=== PATIENT | female | born 2005 | race Caucasian/White ===

== ENCOUNTER 2024-04-19 19:07 | Emergency (ER) | payer BC, SELFPAY ==
--- NOTE | ~2024-04-19 | CT_ITS ---
EXAMINATION: CT HEAD WITHOUT CONTRAST CLINICAL INFORMATION: Left hemianopia. Migraine. COMPARISON: None available. TECHNIQUE: Contiguous axial imaging was performed from the skull base to vertex without intravenous administration of contrast. This CT examination was performed using dose optimization techniques as appropriate, variously including the following: *Automated exposure control *Adjustment of mA and/or kV according to patient size (this includes techniques or standardized protocols for targeted exams where dose is matched to indication/reason for exam; i.e. extremities or head) *Use of iterative reconstruction technique DLP: 695 mGy-cm FINDINGS: There is no acute intracranial hemorrhage. There is no evidence of acute/subacute cerebral or cerebellar infarction. There is no mass effect or midline shift. There is no extra-axial fluid collection. The ventricles are normal in size. The orbits are symmetric and within normal limits. The calvarium is intact. The mastoid air cells are well aerated. There is mucosal thickening within both maxillary sinuses, left greater than right. There is a moderate degree of mucosal disease throughout the ethmoid air cells bilaterally. There is mucosal disease within the sphenoid sinus. CT/CT head/brain wo IV con IMPRESSION: No acute intracranial abnormality. Moderate paranasal sinus mucosal disease.
[2024-04-19 19:32] VITALS: BP 113/62; PULSE 78; RESP 18; TEMP 36.6; O2SAT 98; BMI 27.9
--- NOTE | 2024-04-19 19:35 | ED.GENADULT ---
HPI - General Adult General Chief complaint: Neuro Symptoms/Deficit Stated complaint: L side vision changes, L side tingling and numbnes Time Seen by Provider: 04/19/24 21:41 Source: patient Mode of arrival: ambulatory Limitations: no limitations History of Present Illness ED Provider: yenifer ALVARADO narrative: Patient history of migraine headache today at around 17:30 all of a sudden noticed mild headache with left lateral scotoma unable to see in the left side with slight numbness of the left side of the face lasted for about an hour no other deficits after arrival in the ER patient does not have any vision changes has still mild headache patient never had similar complaints in the past Related Data Previous Rx's ?Medication ?Instructions ?Recorded aiqrwlwnww-pzvysdfoctfef-orwmjfcv 1 tab PO Q6H PRN haeadace #20 tabs 04/19/24 50 mg-325 mg-40 mg tablet sumatriptan succinate 50 mg tablet 50 mg PO Q2H PRN migraine headache 04/19/24 (Imitrex) #10 tabs Allergies Allergy/AdvReac Type Severity Reaction Status Date / Time Penicillins [PCN] Allergy Hives Verified 04/19/24 19:42 Review of Systems Review of Systems: Yes all other systems are reviewed and are negative PMFSH Social History Social History Advance Directives: No Advance Directives Information Provided: No Do you have a plan to hurt others: No Plan Physical Exam ED Vital Signs: Vital Signs - 24 hr 04/19/24 19:32 04/19/24 22:00 04/19/24 23:36 Temperature 97.9 F 98.5 F 98.5 F Pulse Rate 78 79 79 Respiratory Rate 18 18 Blood Pressure 113/62 113/70 113/70 Pulse Oximetry 98 98 98 Oxygen Delivery Method Room Air Room Air BMI result Body Mass Index 27.9 Appearance: Alert. Oriented X3. No acute distress. Eyes: PERRLA, No Nystagmus EOMI visual jefferson intact fundus benign ENT: Pharynx normal. Oral Mucosa moist Neck: Normal inspection. Neck supple. CVS: Normal heart rate and rhythm. Pulses normal. Respiratory: No respiratory distress. Equal air entry bilateral, no wheezing/rales/rhonchi Abdomen: Soft and nontender. Bowel sounds are present, no mass palpable, no CVA tenderness Skin: Skin warm and dry. Normal skin color. Normal skin turgor. Extremities: No lower extremity edema. No calf tenderness Neuro: Oriented X 3. No motor deficit. No sensory deficit.No cerebellar signs , cranial nerves II-XII intact NIH Stroke Scale Internal: Initial- Upon Arrival Time: 19:48 Level of Consciousness: Alert Level of Consciousness Questions: Answers both questions correctly Level of Consciousness Commands: Performs both tasks correctly Best Gaze: Normal Visual: No visual loss Facial Palsy: Normal Motor Arm (Right): No drift Motor Arm (Left): No drift Motor Leg (Right): No drift Motor Leg (Left): No drift Limb Ataxia: Absent Sensory: Normal Best Language: No aphasia Dysarthia: Normal Extinction and Inattention: No abnormality Score: 0 Course Course Course Narrative: This is a rapid medical exam performed by Huey Godinez NP: Additional HPI, ROS, PE not included below will be deferred to primary provider. Patient is a 18-year-old female with history of migraines presenting to the ED with complaint of intermittent decreased vision to lateral field of vision in left eye as well as headache, left sided facial tingling and left arm numbness and tingling. Describes visual changes as a loss, not black. States her visual symptoms and numbness/tingling are not always associated with a headache. Has seen a neurologist once and had an MRI but is not currently prescribed any migraine medications. NIHSS 0. States she fell down a few stairs the other day due to vision impairment, denies head strike or LOC. Denies any known tick bites or rashes. Plan: labs Medications Administered Discontinued Medications Generic Name Dose Route Start Last Admin Trade Name Mehul PRN Reason Stop Dose Admin Acetaminophen/Butalbital/Caffeine 1 tab 04/19/24 22:46 04/19/24 22:52 Butalb/Acetamin/Caff 50/325/40 Tablet PO 04/19/24 22:47 1 tab ONCE ONE Administration Medical Decision Making Medical Decision Making [facility] Narrative: Patient's symptoms likely from ocular migraine no motor deficit at this time unlikely TIA or CVA Differential Diagnosis Differential Diagnoses: The differential diagnosis associated with the presentation includes Ocular migraine/TIA/CVA Lab Data [facility] Lab Attestation statement: I reviewed the patient's lab results. 04/19/24 19:52 07/24/24 19:52 Labs: Lab Results 04/19/24 04/19/24 Range/Units 19:52 22:57 WBC 8.4 (4.8-10.8) X10*3/uL RBC 5.03 (4.20-5.50) X10*6/uL Hgb 11.6 L (12.0-16.0) g/dl Hct 37.2 (37.0-47.0) % MCV 74.0 L (80.0-98.0) fL MCH 23.1 L (27.0-33.0) pg MCHC 31.2 (31.0-35.0) g/dl RDW 15.9 (11.0-16.0) % Plt Count 342 (160-400) X10*3/uL MPV 9.8 (9.4-12.3) fL Immature Gran % (Auto) 0.2 (0.0-0.4) % Neut % (Auto) 52.5 (45-73) % Lymph % (Auto) 33.8 (20-40) % [place] % (Auto) 8.2 (2-11) % Eos % (Auto) 4.9 H (0-4) % Baso % (Auto) 0.4 (0-2) % Lymph # (Auto) 2.8 (1.2-4.9) X10*3/uL [place] # (Auto) 0.7 (0.1-1.2) X10*3/uL Eos # (Auto) 0.4 (0.0-0.4) X10*3/uL Baso # (Auto) 0.0 (0.0-0.2) X10*3/uL Abs Immat Gran (auto) 0.02 (0.00-0.03) X10*3/uL Absolute Neuts (auto) 4.4 (2.0-8.3) x10*3/uL Absolute Nucleated RBC 0.000 (0.0-0.012) X10*3/uL Nucleated RBC % (auto) 0.0 (0.0-0.2) /100WBC Sodium 140 (135-145) mmol/L Potassium 4.0 (3.3-5.1) mmol/L Chloride 104 (96-108) mmol/L Carbon Dioxide 25 (22-29) mmol/L Anion Gap 15 (12-20) BUN 14 (9-16) mg/dL Creatinine 1.01 (0.5-1.4) mg/dL Estim Creat Clear Calc 110.4 Estimated GFR > 60 Random Glucose 89 (60-115) mg/dL Calcium 9.9 (8.4-10.2) mg/dL Magnesium 2.4 (1.6-2.6) mg/dL Total Bilirubin 0.9 (0.0-1.0) mg/dL AST 21 (5-31) U/L ALT 46 H (0-31) U/L Alkaline Phosphatase 64 (39-117) U/L Total Protein 7.7 (6.5-8.0) g/dL Albumin 4.2 (3.5-5.0) g/dL TSH 1.68 (0.32-4.0) uIU/mL Beta HCG, Quant < 2 mIU/mL Urine Color [place] A Urine Appearance Clear Urine pH 8.0 (5.0-9.0) Ur Specific [place] <= 1.005 (1.005-1.025) Urine Protein Negative (Neg-Trace) mg/dL Urine Glucose (UA) Negative (Negative) mg/dL Urine Ketones Negative (Negative) mg/dL Urine Blood Large (3+) H (Negative) Urine Nitrite Negative (Negative) Ur Leukocyte Esterase Trace H (Negative) Urine RBC >20 H (0-2) /HPF Urine WBC 0-5 (0-5) /HPF Ur Squamous Epith Cells 0-2 (0-2) /HPF Urine Bacteria None Seen (None Seen) Hyaline Casts 0-2 (0-2) /LPF Discharge Plan Discharge Clinical Impression: Ocular migraine Patient Disposition: Home, Self-Care Instructions: Ocular Migraine (ED) Additional Instructions: Your symptoms likely from ocular migraine Take Imitrex and Fioricet as prescribed Follow up with your PCP Prescriptions: New sumatriptan succinate [Imitrex] 50 mg tablet 50 mg PO Q2H PRN (Reason: migraine headache) Qty: 10 0RF Rx Instructions: do not exceed 2 doses per 24 hrs zfobzuorhb-wniayikvodhsg-bnow 50-325-40 mg tablet 1 tab PO Q6H PRN (Reason: haeadace) Qty: 20 0RF Interventions: ED Discharge Assessment Last Done: 04/19/24 23:36 Discharge Date/Time: 04/19/24 23:37 Print Language: Citizen Of [place]
[2024-04-19 19:55] LABS: MANUAL DIFF FLAG NO
--- OUTSIDE RECORDS SUMMARY | 2024-04-19 19:58 | XMS_ITS | Continuity of Care Document ---
Author Organization [facility] Address [address] [place] [address]- Care Team Providers Care Hairspring Setter Name Role Phone Any KIRK, Nicolas Bailey Primary Care Physician Encounter PSS Date(s): 03/31/23 - 04/07/23 [facility] [place] [address] [place] [address]- Attending Physician: Maya SALES ENABLEMENT MANAGER, Rafia Veliz Allergies, Adverse Reactions, Alerts Substance Reaction Severity Status amoxicillin hives Active Immunizations Given and Recorded Vaccine Date Status Refusal Reason Meningococcal Conjugate Vaccine 03/27/22 Given Meningococcal Conjugate Vaccine 1 06/26/15 Given SARS-CoV-2 (COVID-19) mRNA BNT-162b2 vac 03/13/21 Recorded SARS-CoV-2 (COVID-19) mRNA BNT-162b2 vac 02/13/21 Recorded influenza virus vaccine, inactivated 10/01/20 Give n influenza virus vaccine, inactivated 2 10/06/14 Gi rona influenza virus vaccine, inactivated 09/15/04 Give n influenza virus vaccine, inactivated 08/07/04 Give n Hepatitis A Pediatric Vaccine 01/24/20 Given tetanus/diphtheria/pertussis, acel(Tdap) 3 06/26/15 Given Poliovirus Vaccine, Inactivated 01/30/09 Given Poliovirus Vaccine, Inactivated 06/17/05 Given Poliovirus Vaccine, Inactivated 04/01/04 Given Poliovirus Vaccine, Inactivated 02/05/04 Given Diphtheria/Tet/Pertussis, Acel (oldterm) 01/30/09 Given Measles/Mumps/Rubella Virus Vaccine 01/20/08 Given Measles/Mumps/Rubella Virus Vaccine 03/11/05 Given Varicella Virus Vaccine 01/20/08 Given Varicella Virus Vaccine 12/08/04 Given Influenza Virus Vaccine (oldterm) 09/08/06 Given Diphth/Pertussis,Acel/Tetanus (oldterm) 06/17/05 G iven Diphth/Pertussis,Acel/Tetanus (oldterm) 06/03/04 G iven Diphth/Pertussis,Acel/Tetanus (oldterm) 04/01/04 G iven Diphth/Pertussis,Acel/Tetanus (oldterm) 02/05/04 G iven Haemophilus B Conj Vaccine (oldterm) 03/11/05 Give n Haemophilus B Conj Vaccine (oldterm) 06/03/04 Give n Haemophilus B Conj Vaccine (oldterm) 04/01/04 Give n Haemophilus B Conj Vaccine (oldterm) 02/05/04 Give n Prevnar Inj (oldterm) 12/08/04 Given Prevnar Inj (oldterm) 06/03/04 Given Prevnar Inj (oldterm) 04/01/04 Given Prevnar Inj (oldterm) 02/05/04 Given Hepatitis B Vaccine (old term) 09/01/04 Given Hepatitis B Vaccine (old term) 01/07/04 Given Hepatitis B Vaccine (old term) 03 Given 1Result Comment: [06/26/2015] Dr. Diaz 2Result Comment: [10/06/2014] Cydney Diaz MD 3Result Comment: [06/26/2015] Dr. Diaz Medications Claritin 10 mg oral tablet 1 tablet = 10 mg, By Mouth, Daily, # 30 tablet, 0 Refills, Maintenance, 06/26/15 15:17:08, Tablet Start Date: 06/26/15 Status: Ordered Flonase 50 mcg/inh nasal spray 1 sprays, Nares, Both, Daily, 0 Refills, Maintenance, 06/26/15 15:17:20 Start Date: 06/26/15 Status: Ordered Lidoderm 5% film 1 patch, Topically, Daily, # 21 patch, 0 Refills, Maintenance, 06/28/21 3:10:00 EDT, [facility]/pharmacy #[id number], Partial fill upon patient request if the prescription is for a schedule II opioid drug., 1 patch Topically Daily,x21 days, 181, cm, 06/28/21 0:46:... Start Date: 06/28/21 Stop Date: 07/19/21 Status: Ordered magnesium gluconate 500 mg oral tablet 1 tablet = 500 mg, By Mouth, Daily, # 100 tablet, 3 Refills, Maintenance, 07/25/18 15:18:21 EDT Start Date: 07/25/18 Status: Ordered riboflavin 400 mg oral capsule 1 capsule = 400 mg, By Mouth, Daily, # 100 capsule, 3 Refills, Maintenance, 07/25/18 15:18:33 EDT, Capsule Start Date: 07/25/18 Status: Ordered Zofran ODT 4 mg oral tablet, disintegrating 1 tablet = 4 mg, By Mouth, 3 times a day, # 15 tablet, 0 Refills, Maintenance, 07/07/18 18:37:00 EDT Start Date: 07/07/18 Stop Date: 07/12/18 Status: Ordered Problem List Condition Confirmation Course Effective Dates Status Health St atus Informant Allergic rhinitis Confirmed Active Lactose intolerance Confirmed Active Vital Signs Most recent to oldest [Reference Range]: 1 Height 178 cm (03/31/23 10:11 AM) Weight 103.3 kg (03/31/23 10:11 AM) Pulse Rate [55-90 bpm] 86 bpm (03/31/23 10:11 AM) Body Mass Index [18.5-24.99 kg/m2] 32.6 kg/m2 *>HHI* (03/31/23 10:11 AM) Blood Pressure [90-138/55-84 mm Hg] 124/ 80mm Hg (03/31/23 10:11 AM) Temperature [96.8-100.4 DegF] 99.1 DegF (02/15/23 1:22 PM) Blood pressure sites Arm, left (03/31/23 10:11 AM) Temperature Route Tympanic (02/15/23 1:22 PM) Dry Weight 103.3 kg (03/31/23 10:11 AM) Weight Obtained Via Standing scale (03/31/23 10:11 AM) Dry Weight Obtained Via Standing scale (03/31/23 10:11 AM) Height Percentile 98.87 % 1 (03/31/23 10:11 AM) Height ZScore 2.28 2 (03/31/23 10:11 AM) Weight Percentile Per Age 98.90 % 3 (03/31/23 10:11 AM) BMI Percentile 96.04 4 (03/31/23 10:11 AM) BMI ZScore 1.76 5 (03/31/23 10:11 AM) Weight ZScore 2.29 6 (03/31/23 10:11 AM) 1Result Comment: ^~:!Percentile Source -CDC/WHO 2Result Comment: ^~:!ZScore Source -CDC/WHO 3Result Comment: ^~:!Percentile Source -CDC/WHO 4Result Comment: ^~:!Percentile Source -CDC/WHO 5Result Comment: ^~:!ZScore Source -CDC/WHO 6Result Comment: ^~:!ZScore Source -CDC/WHO Social History Social History Type Response Smoking Status Never smoker; Tobacc o user in household: No entered on: 07/07/18 Sex Patient Care team information Care Team Personnel Name: Rafia Trejo NP Position: [facility] Associate Professional Member Role: Lifetime Consulting Provider Address: Address: [address] [place] [address] [facility] [address] Name: Chriss Garcia MD Position: [facility] Physician - Pediatrics Member Role: Lifetime Consulting Physician Address: Address: [address] [place] [address] [address] Name: Nicolas Agarwal MD Position: [facility] Physician - Pediatrics Member Role: PCP Address: Address: [address] [place] [address] [facility] [address] Name: Rubio Agarwal NP Position: [facility] Associate Professional Member Role: Lifetime Consulting Provider Address: Address: [address] [place] [address] [facility] [place] [address] Name: Nadia Alford Position: [facility] Associate Professional Member Role: Lifetime Consulting Provider Address: Address: [address] [place] [address] [facility] [address] Care Team Related Persons Name: FEDERICO OBRIEN Address: home [address] [place] [address] Name: ROBIN OBRIEN Address: home [address] [place] [address]
--- OUTSIDE RECORDS SUMMARY | 2024-04-19 19:58 | XMS_ITS | Continuity of Care Document ---
Author Organization [facility] Address [address] [place] [address]- Care Team Providers Care Oven Operator Automatic Name Role Phone Any KIRK, Nicolas Bailey Primary Care Physician Encounter PSS Date(s): 10/03/21 - 03/14/22 [facility] [place] [address] [place] [address]- Attending Physician: Rubio Agarwal NP [place] Allergies, Adverse Reactions, Alerts Substance Reaction Severity Status amoxicillin hives Active Immunizations Given and Recorded Vaccine Date Status Refusal Reason influenza virus vaccine, inactivated 10/01/20 Give n influenza virus vaccine, inactivated 1 10/06/14 Gi rona influenza virus vaccine, inactivated 09/15/04 Give n influenza virus vaccine, inactivated 08/07/04 Give n Hepatitis A Pediatric Vaccine 01/24/20 Given Meningococcal Conjugate Vaccine 2 06/26/15 Given tetanus/diphtheria/pertussis, acel(Tdap) 3 06/26/15 Given Poliovirus [...] Vaccine (old term) 03 Given 1Result Comment: [10/06/2014] Cydney Diaz MD 2Result Comment: [06/26/2015] Dr. Diaz 3Result Comment: [06/26/2015] Dr. Diaz Medications Claritin [...] patch, 0 Refills, Maintenance, 06/28/21 3:10:00 EDT, [facility]/pharmacy #[id number], Partial fill upon patient request if [...] Date: 07/12/18 Status: Ordered Problem List Condition Effective Dates Status Health Status Inform ant Allergic rhinitis(Confirmed) Active Lactose intolerance(Confirmed) Active Social History Social History Type Response Smoking Status Never smoker; Tobacc o user in household: No entered on: 07/07/18 Sex
--- OUTSIDE RECORDS SUMMARY | 2024-04-19 19:58 | XMS_ITS | Continuity of Care Document ---
Author Organization [facility] Address [address] [place] [address]- Care Team Providers Care Hand Meat Salter Name Role Phone Any KIRK, Nicolas Bailey Primary Care Physician Encounter [facility] Date(s): 06/27/21 - 06/28/[address] [address]- Encounter Diagnosis Acute lumbar back pain(Final) - 06/28/21 Injury of spinal nerve root at L5 level(Final) - 06/28/21 Discharge Disposition: A-D/C Home Attending Physician: Carline Gonzalez DO Admitting Physician: Carline Gonzalez DO Referring Physician: Not on Staff, Referring MD Allergies, Adverse Reactions, Alerts Substance Reaction Severity [...] patch, 0 Refills, Maintenance, 06/28/21 3:10:00 EDT, [facility]/pharmacy #[id number], Partial fill upon patient request [...] ant Allergic rhinitis(Confirmed) Active Lactose intolerance(Confirmed) Active Results Radiology Reports * Exam Date Time Procedure Performing Provider Status 06/27/21 10:24 PM Lumbar Spine 2 or 3 Views Driss Campuzano; Auth (Verified) Notes: (Lumbar Spine 2 or 3 Views) Reason For Exam: Pain RESULT: Lumbar Spine 2 or 3 Views Lumbar Spine 2 or 3 Views Hx of Present Illness: severe lower back pain, has hx of stress fxs in back.; Reason: Pain; Clinical Question(s): Fracture Dislocation COMPARISON: None. FINDINGS: Mild curvature to the right. No bone lesions or fractures. Normal disc configuration. Normal alignment. No spondylolysis or spondylolisthesis. Normal soft tissues. IMPRESSION: No acute osseous injury identified. WSN: [id number] Ordering Physician: Joelle Lepe Dictated By: Estevan Cruz MD Dictated Date/Time: 06/27/21 10:34 p Reviewed By: Estevan Cruz MD Signed By: Estevan Cruz MD Signed Date/Time: 06/27/21 10:34 pm Transcribed By: THAI Transcribed Date/Time: 06/27/21 10:26 pm Vital Signs Most recent to oldest [Reference Range]: 1 2 Height 181 cm (06/28/21 12:46 AM) 181 cm (06/27/21 6:12 PM) Weight 93.4 kg (06/28/21 12:46 AM) 93.4 kg (06/27/21 6:12 PM) Oxygen Saturation [94-100 %] 97 % (06/28/21 12:46 AM) 100 % (06/27/21 6:12 PM) Pulse Rate [55-90 bpm] 68 bpm (06/28/21 12:46 AM) 93 bpm *H* (06/27/21 6:12 PM) Body Mass Index [18.5-24.99] 28.51 *H* (06/28/21 12:46 AM) 28.51 *H* (06/27/21 6:12 PM) Blood Pressure [80-130/50-80 mm Hg] 109/ 59mm Hg (06/28/21 12:46 AM) 114/61mm Hg (06/27/21 6:12 PM) Respiratory Rate [16-30 br/min] 16 br/mi n (06/28/21 12:46 AM) 20 br/min (06/27/21 6:12 PM) Temperature [96.8-100.4 DegF] 98.7 DegF (06/28/21 12:46 AM) 98.2 DegF (06/27/21 6:12 PM) Mode of Delivery (Oxygen) Room air (06/28/21 12:46 AM) Room air (06/27/21 6:12 PM) Blood pressure sites Arm, left (06/28/21 12:46 AM) Arm, left (06/27/21 6:12 PM) Temperature Route Oral (06/28/21 12:46 AM) Oral (06/27/21 6:12 PM) Dry Weight 93.4 kg (06/28/21 12:46 AM) 93.4 kg (06/27/21 6:12 PM) Weight Obtained Via Standing scale (06/27/21 6:12 PM) Dry Weight Obtained Via Standing scale (06/27/21 6:12 PM) Social History Social History Type Response Smoking Status Never smoker; Tobacc o user in household: No entered on: 07/07/18 Sex
--- OUTSIDE RECORDS SUMMARY | 2024-04-19 19:58 | XMS_ITS | Continuity of Care Document ---
Author Organization [facility] Address [address] [place] [address]- Care Team Providers Care Hedis Coordinator Name Role Phone Any KIRK, Nicolas Bailey Primary Care Physician [phone] Encounter PSS Date(s): 09/18/19 - 01/24/20 [facility] [address] [place] [address]- [facility] Attending Physician: Joe KIRK, Cydney Caceres Allergies, Adverse Reactions, Alerts Substance Reaction Severity Status amoxicillin hives Active Immunizations Given and Recorded Vaccine Date Status Refusal Reason Hepatitis A Pediatric Vaccine 01/24/20 Given Meningococcal Conjugate Vaccine 1 06/26/15 Given tetanus/diphtheria/pertussis, acel(Tdap) 2 06/26/15 Given influenza virus vaccine, inactivated 3 10/06/14 Gi rona influenza virus vaccine, inactivated 09/15/04 Give n influenza virus vaccine, inactivated 08/07/04 Give n Poliovirus Vaccine, Inactivated 01/30/09 Given Poliovirus Vaccine, [...] 1Result Comment: [06/26/2015] Dr. Diaz 2Result Comment: [06/26/2015] Dr. Diaz 3Result Comment: [10/06/2014] Cydney Diaz MD Medications Claritin 10 mg oral tablet 1 tablet = 10 mg, By Mouth, Daily, # 30 tablet, 0 Refills, Maintenance, 06/26/15 15:17:08, Tablet Start Date: 06/26/15 Status: Ordered Flonase 50 mcg/inh nasal spray 1 sprays, Nares, Both, Daily, 0 Refills, Maintenance, 06/26/15 15:17:20 Start Date: 06/26/15 Status: Ordered magnesium gluconate 500 mg oral [...]
--- OUTSIDE RECORDS SUMMARY | 2024-04-19 19:58 | XMS_ITS | Continuity of Care Document ---
Author Organization [facility] Address [address] [place] [address]- Care Team Providers Care Owner Oral Surgeon Name Role Phone Any KIRK, Nicolas Bailey Primary Care Physician [phone] Encounter 06/30/21 - 07/30/21 [facility] [address] [place] [address]- Allergies, Adverse Reactions, Alerts Substance Reaction Severity [...] patch, 0 Refills, Maintenance, 06/28/21 3:10:00 EDT, [facility]/pharmacy #[id number], Partial fill upon patient request [...]
--- OUTSIDE RECORDS SUMMARY | 2024-04-19 19:58 | XMS_ITS | Continuity of Care Document ---
Author Organization [facility] Address [address] [place] [address]- Care Team Providers Care Lactation Coordinator Name Role Phone Any KIRK, Nicolas Bailey Primary Care Physician [phone] Encounter [facility] Date(s): 03/17/24 - 04/16/24 [facility] [address] [place] [address]- Allergies, Adverse Reactions, Alerts Substance Reaction Severity Status amoxicillin hives Active Immunizations Given and Recorded Vaccine Date Status Refusal Reason SARS-CoV-2 mRNA (djvrgdx-lsdu-dlato) vax 03/31/22 Recorded Meningococcal Conjugate Vaccine 03/27/22 Given Meningococcal Conjugate [...] patch, 0 Refills, Maintenance, 06/28/21 3:10:00 EDT, [facility]/pharmacy #[id number], Partial fill upon patient request [...] rhinitis Confirmed Active Lactose intolerance Confirmed Active Social History Social History Type Response Smoking Status Never smoker; Tobacc o user in household: No entered on: 07/07/18 Sex Patient Care team information Care Team Personnel Name: Rafia Trejo NP Position: [facility] Associate Professional Member Role: Lifetime Consulting Provider Address: Address: [address] [place] [address] Name: Chriss Garcia MD Position: [facility] Physician - Pediatrics Member Role: Lifetime Consulting Physician Address: Address: [address] [place] [address] Pediatric Services [address] Name: Nicolas Agarwal MD Position: [facility] Physician - Pediatrics Member Role: PCP Address: Address: [address] [place] [address] [facility] Services [address] Name: Rubio Agarwal NP Position: [facility] Associate Professional Member Role: Lifetime Consulting Provider Address: Address: [address] [place], [place] [address] [address] Name: Nadia Alford Position: [facility]O Associate Professional Member Role: Lifetime Consulting Provider Address: Address: [address] [place] [address] [address] Care Team Related Persons Name: FEDERICO OBRIEN Address: [address] [place] [address] Name: ROBIN OBRIEN Address: [address] [place] [address]
--- OUTSIDE RECORDS SUMMARY | 2024-04-19 19:58 | XMS_ITS | Continuity of Care Document ---
Author Organization [facility] Address [address] [place] [address]- Care Team Providers Care Tube Teller Name Role Phone Any KIRK, Nicolas Bailey Primary Care Physician Encounter PSS Date(s): 01/24/20 - 01/31/20 [facility] [place] [address] [place] [address]- [facility] Attending Physician: Rubio Agarwal NP Navneet Allergies, [...] 18:37:00 EDT Start Date: 07/07/18 Stop Date: 10/16/18 Status: Ordered Problem List Condition Effective Dates Status Health Status Inform ant Allergic rhinitis(Confirmed) Active Lactose intolerance(Confirmed) Active Vital Signs Most recent to oldest [Reference Range]: 1 Height 177.5 cm (01/24/20 1:30 PM) Weight 89.9 kg (01/24/20 1:30 PM) Pulse Rate [55-90 bpm] 74 bpm (01/24/20 1:30 PM) Body Mass Index [18.5-24.99] 28.53 *H* (01/24/20 1:30 PM) Blood Pressure [80-130/50-80 mm Hg] 112/ 56mm Hg (01/24/20 1:30 PM) Temperature [96.8-100.4 DegF] 97.9 DegF (01/24/20 1:30 PM) Blood pressure sites Arm, left (01/24/20 1:30 PM) Temperature Route Tympanic (01/24/20 1:30 PM) Dry Weight 89.9 kg (01/24/20 1:30 PM) Weight Obtained Via Standing scale (01/24/20 1:30 PM) Dry Weight Obtained Via Standing scale (01/24/20 1:30 PM) Social History Social History Type Response Smoking Status Never smoker; Tobacc o user in household: No entered on: 07/07/18 Sex
--- OUTSIDE RECORDS SUMMARY | 2024-04-19 19:59 | XMS_ITS | Continuity of Care Document ---
Author Organization [facility] Address [address] [place] [address]- Care Team Providers Care Trombone Slide Assembler Name Role Phone Any KIRK, Nicolas Bailey Primary Care Physician [phone] Encounter PSS Date(s): 10/01/20 - 10/08/20 [facility] [place] [address] [place] [address]- Attending Physician: Not on Staff, Attending MD Allergies, Adverse Reactions, Alerts Substance Reaction [...]
--- OUTSIDE RECORDS SUMMARY | 2024-04-19 19:59 | XMS_ITS | Continuity of Care Document ---
Author Organization [facility] Address [address] [place] [address]- Care Team Providers Care Surplus Property Disposal Agent Name Role Phone Any KIRK, Nicolas Bailey Primary Care Physician Encounter PSS Date(s): 03/27/22 - 04/03/22 [facility] [place] [address] [place] [address]- Attending Physician: Any VIRTUAL OFFICE ASSISTANTRubio Navneet Allergies, Adverse Reactions, Alerts Substance Reaction [...] patch, 0 Refills, Maintenance, 06/28/21 3:10:00 EDT, [facility]/pharmacy #[id number], Partial fill upon patient request [...] recent to oldest [Reference Range]: 1 Height 180 cm (03/27/22 11:00 AM) Weight 93.3 kg (03/27/22 11:00 AM) Pulse Rate [55-90 bpm] 76 bpm (03/27/22 11:00 AM) Body Mass Index [18.5-24.99] 28.8 *H* (03/27/22 11:00 AM) Blood Pressure [71-110/30-71 mm Hg] 104/ 62mm Hg (03/27/22 11:00 AM) Blood pressure sites Arm, left (03/27/22 11:00 AM) Dry Weight 93.3 kg (03/27/22 11:00 AM) Weight Obtained Via Standing scale (03/27/22 11:00 AM) Dry Weight Obtained Via Standing scale (03/27/22 11:00 AM) Social History Social History Type Response Smoking Status Never smoker; Tobacc o user in household: No entered on: 07/07/18 Sex
--- OUTSIDE RECORDS SUMMARY | 2024-04-19 19:59 | XMS_ITS | Continuity of Care Document ---
Author Organization [facility] Address [address] [place] [address]- Care Team Providers Care Sound Tester Name Role Phone Any KIRK, Nicolas Bailey Primary Care Physician Encounter PSS Date(s): 10/03/21 - 10/10/21 [facility] [place] [address] [place] [address]- Attending Physician: Not on Staff, Attending MD [...] patch, 0 Refills, Maintenance, 06/28/21 3:10:00 EDT, [facility]/pharmacy #[id number], Partial fill upon patient request [...] Most recent to oldest [Reference Range]: 1 Oxygen Saturation [94-100 %] 97 % (10/03/21 11:11 AM) Pulse Rate [55-90 bpm] 85 bpm (10/03/21 11:11 AM) Blood Pressure [80-130/50-80 mm Hg] 112/ 60mm Hg (10/03/21 11:11 AM) Blood pressure sites Arm, left (10/03/21 11:11 AM) Social History Social History Type Response Smoking Status Never smoker; Tobacc o user in household: No entered on: 07/07/18 Sex
--- OUTSIDE RECORDS SUMMARY | 2024-04-19 19:59 | XMS_ITS | Continuity of Care Document ---
Author Organization [facility] Address [address] [place] [address]- Care Team Providers Care Lever Tender Name Role Phone Any KIRK, Nicolas Bailey Primary Care Physician [phone] Encounter PSS Date(s): 10/03/19 - 10/10/19 [facility] [address] [place] [address]- [facility] Attending Physician: Not on Staff, Attending MD Allergies, Adverse Reactions, Alerts Substance Reaction Severity Status amoxicillin hives Active Immunizations Given and Recorded Vaccine Date Status Refusal Reason Meningococcal Conjugate Vaccine 1 06/26/15 Given tetanus/diphtheria/pertussis, [...] Diphth/Pertussis,Acel/Tetanus (oldterm) 06/03/04 G iven Diphth/Pertussis,Acel/Tetanus (oldterm) 7/6/04 G iven Diphth/Pertussis,Acel/Tetanus (oldterm) 02/05/04 G iven [...] Most recent to oldest [Reference Range]: 1 Weight 91.3 kg (10/03/19 2:19 PM) Pulse Rate [55-90 bpm] 72 bpm (10/03/19 2:19 PM) Blood Pressure [80-130/50-80 mm Hg] 110/ 68mm Hg (10/03/19 2:19 PM) Temperature [96.8-100.4 DegF] 98.3 DegF (10/03/19 2:19 PM) Blood pressure sites Arm, left (10/03/19 2:19 PM) Temperature Route Tympanic (10/03/19 2:19 PM) Dry Weight 91.3 kg (10/03/19 2:19 PM) Weight Obtained Via Standing scale (10/03/19 2:19 PM) Dry Weight Obtained Via Standing scale (10/03/19 2:19 PM) Social History Social History Type Response Smoking Status Never smoker; Tobacc o user in household: No entered on: 07/07/18 Sex
--- OUTSIDE RECORDS SUMMARY | 2024-04-19 19:59 | XMS_ITS | Continuity of Care Document ---
Author Organization [facility] Address [address] [place] [address]- Care Team Providers Care Assembler Dc Field Ring Name Role Phone Any KIRK, Nicolas Bailey Primary Care Physician Encounter PSS Date(s): 02/10/21 - 02/17/21 [facility] [place] [address] [place] [address]- Attending Physician: Maya EXPORT CLERK, Rafia Veliz Allergies, Adverse Reactions, Alerts Substance [...] oldest [Reference Range]: 1 Height 178 cm (02/10/21 2:36 PM) Weight 88.1 kg (02/10/21 2:36 PM) Pulse Rate [55-90 bpm] 67 bpm (02/10/21 2:36 PM) Body Mass Index [18.5-24.99] 27.81 *H* (02/10/21 2:36 PM) Blood Pressure [80-130/50-80 mm Hg] 120/ 68mm Hg (02/10/21 2:36 PM) Blood pressure sites Arm, left (02/10/21 2:36 PM) Dry Weight 88.1 kg (02/10/21 2:36 PM) Weight Obtained Via Standing scale (02/10/21 2:36 PM) Dry Weight Obtained Via Standing scale (02/10/21 2:36 PM) Social History Social History Type Response Smoking Status Never smoker; Tobacc o user in household: No entered on: 07/07/18 Sex
--- OUTSIDE RECORDS SUMMARY | 2024-04-19 19:59 | XMS_ITS | Continuity of Care Document ---
Author Organization [facility] Address [address] [place] [address]- Care Team Providers Care Accounting Generalist Name Role Phone Any KIRK, Nicolas Bailey Primary Care Physician Encounter PSS Date(s): 10/26/20 - 11/02/20 [facility] [place] [address] [place] [address]- Attending Physician: Not on Staff, Attending MD [...] [Reference Range]: 1 Oxygen Saturation [94-100 %] 99 % (10/26/20 10:24 AM) Social History Social History Type Response Smoking Status Never smoker; Tobacc o user in household: No entered on: 07/07/18 Sex
--- OUTSIDE RECORDS SUMMARY | 2024-04-19 19:59 | XMS_ITS | Continuity of Care Document ---
Author Organization [facility] Address [address] [place] [address]- Care Team Providers Care It Operations Manager Name Role Phone Any KIRK, Nicolas Bailey Primary Care Physician Encounter [facility] Date(s): 10/04/19 - 10/11/[address] [address]- [facility] Attending Physician: Not on Staff, Attending MD [...]
--- OUTSIDE RECORDS SUMMARY | 2024-04-19 19:59 | XMS_ITS | Continuity of Care Document ---
Author Organization [facility] Address [address] [place] [address]- Care Team Providers Care Metal Dealer Name Role Phone Any KIRK, Nicolas Bailey Primary Care Physician Encounter PSS Date(s): 01/27/21 - 02/03/21 [facility] [place] [address] [place] [address]- Attending Physician: Not on Staff, Attending MD [...] Most recent to oldest [Reference Range]: 1 Temperature [96.8-100.4 DegF] 97.6 DegF (01/27/21 2:00 PM) Social History Social History Type Response Smoking Status Never smoker; Tobacc o user in household: No entered on: 07/07/18 Sex
--- OUTSIDE RECORDS SUMMARY | 2024-04-19 19:59 | XMS_ITS | Continuity of Care Document ---
Author Organization [facility] Address [address] [place] [address]- Care Team Providers Care Janitorial Account Manager Name Role Phone Any KIRK, Nicolas Bailey Primary Care Physician Encounter PSS Date(s): 10/16/19 - 10/23/19 [facility] [address] [place] [address]- [facility] Attending Physician: Not on Staff, Attending MD [...]
--- OUTSIDE RECORDS SUMMARY | 2024-04-19 19:59 | XMS_ITS | Continuity of Care Document ---
Author Organization [facility] Address [address] [place] [address]- Care Team Providers Care Reel Tender Name Role Phone Any KIRK, Nicolas Bailey Primary Care Physician [phone] Encounter PSS Date(s): 06/27/21 - 07/04/21 [facility] [place] [address] [place] [address]- Attending Physician: Not on Staff, Attending MD [...] patch, 0 Refills, Maintenance, 06/28/21 3:10:00 EDT, [facility]/pharmacy #[id number], Partial fill upon patient [...]
[2024-04-19 20:00] LABS: Basophils Percent Auto 0.4 % (0-2); Eosinophils Absolute Auto 0.4 X10*3/uL (0.0-0.4); Eosinophils Percent Auto 4.9 % (0-4); Hematocrit 37.2 % (37.0-47.0); Hemoglobin 11.6 g/dl (12.0-16.0); Imm Gran Abs Auto 0.02 X10*3/uL (0.00-0.03); Imm Gran Pct Auto 0.2 % (0.0-0.4); Lymphocytes Absolute Auto 2.8 X10*3/uL (1.2-4.9); Lymphocytes Percent Auto 33.8 % (20-40); Mean Corpuscular HGB Conc 31.2 g/dl (31.0-35.0); Mean Corpuscular Hemoglobin 23.1 pg (27.0-33.0); Mean Platelet Volume 9.8 fL (9.4-12.3); Monocytes Absolute Auto 0.7 X10*3/uL (0.1-1.2); Monocytes Percent Auto 8.2 % (2-11); Neutrophils Absolute Auto 4.4 x10*3/uL (2.0-8.3); Neutrophils Percent Auto 52.5 % (45-73); Platelet Count 342 X10*3/uL (160-400); Red Blood Count 5.03 X10*6/uL (4.20-5.50); Red Cell Distribution Width 15.9 % (11.0-16.0); White Blood Count 8.4 X10*3/uL (4.8-10.8)
[2024-04-19 20:24] LABS: Alanine Aminotransferase 46 U/L (0-31); Albumin Level 4.2 g/dL (3.5-5.0); Alkaline Phosphatase 64 U/L (39-117); Anion Gap 15 (12-20); Aspartate Amino Transferase 21 U/L (5-31); Bilirubin Total 0.9 mg/dL (0.0-1.0); Blood Urea Nitrogen 14 mg/dL (9-16); Calcium 9.9 mg/dL (8.4-10.2); Carbon Dioxide 25 mmol/L (22-29); Chloride 104 mmol/L (96-108); Creatinine Clr Calc Pharmacy 110.4; Estimated Glomerular Filt Rate > 60; Glucose Random 89 mg/dL (60-115); Magnesium 2.4 mg/dL (1.6-2.6); Sodium 140 mmol/L (135-145); Total Protein 7.7 g/dL (6.5-8.0)
[2024-04-19 20:28] LABS: HCG Quantitative < 2 mIU/mL
[2024-04-19 20:39] LABS: TSH reflex Free T4 1.68 uIU/mL (0.32-4.0)
[2024-04-19 22:00] VITALS: BP 113/70; PULSE 79; TEMP 36.9; O2SAT 98
[2024-04-19] MEDS: Butalb/Acetamin/Caff 50/325/40 TABLET 1 TAB PO (22:52)
[2024-04-19 23:21] LABS: Appearance Urine Clear; Color Urine Orange; Glucose Urine UA Negative (Negative); Leukocyte Esterase Urine Trace (Negative); Nitrite Urine Negative (Negative); Specific Gravity - Urine <= 1.005 (1.005-1.025); UMIC TRIGGER UACC YES; Urine Blood Large (3+) (Negative); Urine Ketones Negative (Negative); Urine Protein Negative (Neg-Trace)
[2024-04-19 23:36] VITALS: BP 113/70; PULSE 79; RESP 18; TEMP 36.9; O2SAT 98
[2024-04-20 00:25] LABS: Bacteria Urine None Seen (None Seen); Hyaline Casts Urine 0-2 /LPF (0-2); RBC Urine >20 /HPF (0-2); Squamous Epithelial Cell Urine 0-2 /HPF (0-2); WBC Urine 0-5 /HPF (0-5)
== END 2024-04-19 23:37 | disposition home or self-care (01) ==
PROVIDERS: Registered Nurse Emergency; Emergency Provider Internal Medicine; PCP Pediatrics Adolescent Medicine
DX: G43.B0 Ophthalmoplegic migraine, not intractable (principal); Z79.899 Other long term (current) drug therapy
CPT/HCPCS: 36415; 70450; 80053; 81001; 83735; 84443; 84702; 85025; 99284